=== PATIENT | male | born 1990 | race Hispanic/Latino ===

== ENCOUNTER 2021-01-26 04:10 | Emergency (ER) | payer SELFPAY ==
[2021-01-26 04:55] LABS: Absolute Lymphocytes (CBC) 3.7 K/uL (0.7-4.9); Basophils % 0.7 % (0-1.3); Hematocrit 44.5 % (39.6-49.0); Lymphocytes % 33.7 % (15.3-44.8); MPV 7.8 fL (7.6-11.3)
[2021-01-26 04:56] LABS: Protime INR 1.07
[2021-01-26] MEDS ORDERED: LORazepam 2 MG/ML VIAL ONE (04:59)
[2021-01-26] MEDS ORDERED: NA CHLORIDE 0.9% 1,000 ML ONE (04:59)
[2021-01-26 05:04] LABS: ALT/SGPT 122 U/L (12-78); AST/SGOT 32 U/L (15-37); Alkaline Phosphatase 124 U/L (45-117); BUN Blood Urea Nitrogen 12 mg/dL (7-18); Bicarbonate 24 mmol/L (21-32); Bilirubin Direct 0.1 mg/dL (0-0.2); Bilirubin Total 0.5 mg/dL (0.2-1.0); Glucose Level 143 mg/dL (74-106); Magnesium 1.9 mg/dL (1.8-2.4); NT PRO-BNP 8 pg/mL (<125); Potassium 3.3 mmol/L (3.5-5.1); Protein, Total 7.8 g/dL (6.4-8.2); Sodium Level 139 mmol/L (136-145); Troponin (Emerg Dept Use Only) < 0.02 ng/mL (0.0-0.045)
[2021-01-26 07:04] LABS: SARS-COV-2 RT PCR NEGATIVE (NEGATIVE)
--- NOTE | 2021-01-26 07:15 | EDPHYS ---
Physician Documentation [facility] Name: Jay Castellano Age: 30 yrs Sex: Male : 1990 Arrival Date: 01/26/2021 Time: 04:11 Bed Treatment Private MD: ED Physician Marciano Mendez HPI: 01/26 04:20 This 30 yrs old Male presents to ER via Wheelchair with complaints of Chest Pain, Left mh7 Arm Tingling. 04:20 The patient or guardian reports chest pain that is located primarily in the anterior mh7 chest wall, left. The pain radiates to the left arm. Associated signs and symptoms: Pertinent positives: dizziness, Pertinent negatives: abdominal pain, cough, diaphoresis, headache, lower extremity pain, lower extremity swelling, lightheadedness, nausea, near syncope, palpitations, recent travel, shortness of breath, syncope, vomiting. The chest pain is described as sharp. Duration: The patient or guardian reports multiple episodes, that are intermittent, that wax and wane, with no pattern. Modifying factors: The symptoms are alleviated by nothing. the symptoms are aggravated by nothing. Severity of pain: At its worst the pain was moderate today, in the emergency department the pain has improved mildly. He admits to drinking alcohol tonight and denies any drug use.. Historical: - Allergies: 04:30 No Known Allergies; em - PMHx: 04:30 None; em - PSHx: 04:30 None; em - Immunization history:: Adult Immunizations unknown. - Social history:: Smoking status: Patient reports the use of cigarette tobacco products, denies chronic smoking, but will smoke occasionally. ROS: 04:20 Constitutional: Negative for fever, chills, and weight loss, Eyes: Negative for injury, mh7 pain, redness, and discharge, ENT: Negative for injury, pain, and discharge, Neck: Negative for injury, pain, and swelling, Respiratory: Negative for shortness of breath, cough, wheezing, and pleuritic chest pain, Abdomen/GI: Negative for abdominal pain, nausea, vomiting, diarrhea, and constipation, Back: Negative for injury and pain, : Negative for injury, bleeding, discharge, and swelling, MS/Extremity: Negative for injury and deformity, Skin: Negative for injury, rash, and discoloration, Neuro: Negative for headache, weakness, numbness, tingling, and seizure, Psych: Negative for depression, anxiety, suicide ideation, homicidal ideation, and hallucinations, Allergy/Immunology: Negative for hives, rash, and allergies, Endocrine: Negative for neck swelling, polydipsia, polyuria, polyphagia, and marked weight changes, Hematologic/Lymphatic: Negative for swollen nodes, abnormal bleeding, and unusual bruising. Exam: 04:20 Constitutional: This is a well developed, well nourished patient who is awake, alert, mh7 and in no acute distress. Head/Face: Normocephalic, atraumatic. Eyes: Pupils equal round and reactive to light, extra-ocular motions intact. Lids and lashes normal. Conjunctiva and sclera are non-icteric and not injected. Cornea within normal limits. Periorbital areas with no swelling, redness, or edema. Neck: Trachea midline, no thyromegaly or masses palpated, and no cervical lymphadenopathy. Supple, full range of motion without nuchal rigidity, or vertebral point tenderness. No Meningismus. Chest/axilla: Normal chest wall appearance and motion. Nontender with no deformity. No lesions are appreciated. 04:20 Respiratory: Lungs have equal breath sounds bilaterally, clear to auscultation and percussion. No rales, rhonchi or wheezes noted. No increased work of breathing, no retractions or nasal flaring. Abdomen/GI: Soft, non-tender, with normal bowel sounds. No distension or tympany. No guarding or rebound. No evidence of tenderness throughout. Back: No spinal tenderness. No costovertebral tenderness. Full range of motion. Skin: Warm, dry with normal turgor. Normal color with no rashes, no lesions, and no evidence of cellulitis. MS/ Extremity: Pulses equal, no cyanosis. Neurovascular intact. Full, normal range of motion. Neuro: Awake and alert, GCS 15, oriented to person, place, time, and situation. Cranial nerves II-XII grossly intact. Motor strength 5/5 in all extremities. Sensory grossly intact. Cerebellar exam normal. Normal gait. Psych: Awake, alert, with orientation to person, place and time. Behavior, mood, and affect are within normal limits. 04:20 Cardiovascular: Rate: tachycardic, Rhythm: regular, Pulses: no pulse deficits are appreciated, Heart sounds: normal, normal S1and S2, Edema: is not appreciated, JVD: is not appreciated. Vital Signs: 04:41 BP 124 / 68; Pulse 97; Resp 20; Temp 97.8; Pulse Ox 98% ; Weight 145.15 kg; Height 5 ea ft. 8 in. (172.72 cm); 04:41 Body Mass Index 48.66 (145.15 kg, 172.72 cm) ea MDM: 07:13 Data reviewed: vital signs, nurses notes, lab test result(s), EKG, radiologic studies, cp CT scan, plain films, and as a result, I will discharge patient. 07:15 Patient medically screened. cp 01/26 04:30 Order name: Basic Metabolic Panel [facility] 01/26 04:30 Order name: CBC with Diff [facility] 01/26 04:30 Order name: LFT's [facility] 01/26 04:30 Order name: Magnesium [facility] 01/26 04:30 Order name: NT PRO-BNP [facility] 01/26 04:30 Order name: PT-INR; Complete Time: 05:12 [facility] 01/26 04:30 Order name: Troponin (emerg Dept Use Only) [facility] 01/26 04:30 Order name: ETOH Level; Complete Time: 05:12 [facility] 01/26 04:31 Order name: Basic Metabolic Panel; Complete Time: 05:12 [facility] 01/26 04:31 Order name: Liver (Hepatic) Function; Complete Time: 05:12 [facility] 01/26 04:31 Order name: CBC with Automated Diff; Complete Time: 05:12 [facility] 01/26 04:31 Order name: Magnesium; Complete Time: 05:12 [facility] 01/26 04:31 Order name: NT PRO-BNP; Complete Time: 05:12 [facility] 01/26 04:30 Order name: XRAY Chest (1 view) [facility] 01/26 04:30 Order name: EKG; Complete Time: 04:31 [facility] 01/26 04:30 Order name: Cardiac monitoring; Complete Time: 04:41 [facility] 01/26 04:30 Order name: EKG - Nurse/Tech; Complete Time: 04:41 [facility] 01/26 04:30 Order name: IV Saline Lock; Complete Time: 04:41 [facility] 01/26 04:30 Order name: Labs collected and sent; Complete Time: 04:41 [facility] 01/26 04:30 Order name: O2 Per Protocol; Complete Time: 04:41 [facility] 01/26 04:30 Order name: O2 Sat Monitoring; Complete Time: 04:41 [facility] 01/26 04:31 Order name: Troponin (Emerg Dept Use Only); Complete Time: 05:12 [facility] 01/26 05:15 Order name: CT Chest For PE Angio [facility] 01/26 05:20 Order name: Influenza Screen (a \T\ B) [facility] 01/26 07:04 Order name: COVID-19/FLU A+B EDMS Administered Medications: 04:41 Drug: NS 0.9% 1000 ml Route: IV; Rate: 1 bolus; Site: left wrist; ea 04:41 Drug: Ativan (LORazepam) 1 mg Route: IVP; Site: left wrist; ea Disposition: 19:09 Co-signature as Attending Physician, Marciano Mendez MD I agree with the assessment and [facility] plan of care. Attestation: The patient's history, exam findings, diagnostics, and a summary of any interventions or procedures was reviewed in detail with Marciano Mendez MD. Disposition Summary: 01/26/21 07:15 Discharge Ordered Location: Home cp Problem: new cp Symptoms: have improved cp Condition: Stable cp Diagnosis - Chest pain, unspecified cp Followup: cp - With: Private Physician - When: 1 - 2 days - Reason: Recheck today's complaints Discharge Instructions: - Discharge Summary Sheet cp - Nonspecific Chest Pain, Adult cp - Aspirin and Your Heart cp Forms: - Medication Reconciliation Form cp - Thank You Letter cp - Antibiotic Education cp - Prescription Opioid Use cp - Work release form eb Prescriptions: - Ibuprofen 800 mg Oral Tablet - take 1 tablet by ORAL route every 8 hours As needed take with food; 30 tablet; cp Refills: 0, Product Selection Permitted Signatures: Dispatcher [employer] Triston Canada RN RN em Page, Corey, PA PA cp Yisel Moon RN RN ea Holmes, Maurice, MD MD [facility] Corrections: (The following items were deleted from the chart) 05:45 05:22 Influenza Screen (A ordered. EDMS EDMS 05:47 05:21 CORONAVIRUS+MR.LAB.BRZ ordered. EDMS EDMS
--- NOTE | 2021-01-26 07:15 | ER ---
Nurse's Notes [facility] Name: Jay Castellano Age: 30 yrs Sex: Male : 1990 Arrival Date: 01/26/2021 Time: 04:11 Bed Treatment Private MD: Diagnosis: Chest pain, unspecified Presentation: 01/26 04:28 Chief complaint: Patient states: reports chest pain and left arm numbness that started em while drinking a few beers and tequila shots, denies nausea and vomiting, also reports dizziness. Coronavirus screen: Client denies travel out of the [place] in the last 14 days. Ebola Screen: Patient negative for fever greater than or equal to 101.5 degrees Fahrenheit, and additional compatible Ebola Virus Disease symptoms Patient denies exposure to infectious person. Patient denies travel to an Ebola-affected area in the 21 days before illness onset. No symptoms or risks identified at this time. Initial Sepsis Screen: Does the patient have a suspected source of infection? No. Patient's initial sepsis screen is negative. Risk Assessment: Do you want to hurt yourself or someone else? Patient reports no desire to harm self or others. Onset of symptoms was January 26, 2021. 04:28 Method Of Arrival: Wheelchair em 04:28 Acuity: SIMONE 3 em 07:00 Initial Sepsis Screen: Does the patient meet any 2 criteria? No. Patient's initial iw sepsis screen is negative. Triage Assessment: 07:54 General: Appears in no apparent distress. Behavior is calm, cooperative. Pain: Denies iw pain. Cardiovascular: Reports. Historical: - Allergies: 04:30 No Known Allergies; em - PMHx: 04:30 None; em - PSHx: 04:30 None; em - Immunization history:: Adult Immunizations unknown. - Social history:: Smoking status: Patient reports the use of cigarette tobacco products, denies chronic smoking, but will smoke occasionally. Screenin:42 Abuse screen: Denies threats or abuse. Nutritional screening: No deficits noted. ea Tuberculosis screening: No symptoms or risk factors identified. Fall Risk IV access (20 points). Vital Signs: 04:41 BP 124 / 68; Pulse 97; Resp 20; Temp 97.8; Pulse Ox 98% ; Weight 145.15 kg; Height 5 ea ft. 8 in. (172.72 cm); 04:41 Body Mass Index 48.66 (145.15 kg, 172.72 cm) ea ED Course: 04:11 Patient arrived in ED. bp1 04:14 Yanique Espinoza, RN is Primary Nurse. bs2 04:21 Marciano Mendez MD is Attending Physician. mh7 04:30 Triage completed. em 04:30 Arm band placed on. em 04:39 Inserted saline lock: 20 gauge in left forearm, using aseptic technique. Blood oe collected. 04:43 Patient has correct armband on for positive identification. Call light in reach. ea threat monitoring analyst on. Pulse ox on. NIBP on. 04:43 Patient maintains SpO2 saturation greater than 95% on room air. ea 05:10 XRAY Chest (1 view) In Process Unspecified. EDMS 05:58 CT Chest For PE Angio In Process Unspecified. EDMS 07:54 No provider procedures requiring assistance completed. IV discontinued, intact, iw bleeding controlled, No redness/swelling at site. Pressure dressing applied. Administered Medications: 04:41 Drug: NS 0.9% 1000 ml Route: IV; Rate: 1 bolus; Site: left wrist; ea 04:41 Drug: Ativan (LORazepam) 1 mg Route: IVP; Site: left wrist; ea Outcome: 07:15 Discharge ordered by MD. cp 07:54 Discharged to home ambulatory. iw 07:54 Condition: good 07:54 Discharge instructions given to patient, Instructed on discharge instructions, follow up and referral plans. medication usage, Demonstrated understanding of instructions, follow-up care, medications, Prescriptions given X 1. 07:54 Patient left the ED. iw Signatures: Dispatcher [employer] EDKS Triston Serrano, RN VINCENZO Sameera Delgado RN RN Steven Guzman PA PA cp Gumaro Bunch Elena, RN RN ea Maria L Bender bp1 Marciano Mendez MD MD 7 Yanique Espinoza, RN RN bs2
--- NOTE | 2021-01-26 07:46 | RAD REPORT ---
EXAM DESCRIPTION: RAD - Chest Single View - 01/26/2021 5:10 am CLINICAL HISTORY: CHEST PAIN COMPARISON: None TECHNIQUE: AP portable chest image was obtained 01/26/2021 5:10 am . FINDINGS: Lung volumes are low accentuating the lung parenchymal pattern. No focal mass or consolida tions seen. A mild interstitial edema or mild interstitial infiltrate could be masked in this setting . Trachea is midline. Heart and vasculature are normal. No measurable pleural effusion and no pneumotho rax. No acute bony abnormality seen. No acute aortic findings suspected. IMPRESSION: Limited shallow inspiration film with no acute cardiopulmonary finding. Mild interstitial edema or infiltrate could be masked in this setting.
[2021-01-26 08:02] VITALS: BP 124/68; TEMP 97.8; O2SAT 98
--- NOTE | 2021-01-27 11:48 | RAD REPORT ---
EXAM DESCRIPTION: CT - Chest For Pe Angio - 01/26/2021 7:00 am COMPARISON: None. CLINICAL HISTORY: [facility] MAIN CHEST PAIN TECHNIQUE: CT images through the chest with IV contrast using the pulmonary embolus protocol. Multip lanar reformats. Automated exposure control was utilized on this examination as a dose lowering techn ique. FINDINGS: Pulmonary arteries and vascular: Suboptimal bolus. No filling defects. Heart and mediastinum: Heart size is normal. No lymphadenopathy. Thyroid gland: Subcentimeter thyroid nodules are noted. Lungs: Mild dependent opacities. Airways: No filling defects. No bronchiectasis. Pleura: No pneumothorax. No significant pleural effusion. Subphrenic structures: Mild hepatic steatosis. Musculoskeletal and soft tissues: Within normal limits for age. IMPRESSION: 1. No evidence of large proximal pulmonary embolus. Limited evaluation for branch emboli due to bolus timing. 2. Mild dependent atelectasis or pulmonary edema. Electronically signed by: Kanu Agarwal MD 01/26/2021 6:19 AM CDT Due to temporary technical issues with the PACS/Fluency reporting system, reports are being signed by the in house radiologist without review as a courtesy to ensure prompt reporting. The interpreting r adiologist is fully responsible for the content of the report.
== END 2021-01-26 07:54 | disposition home or self-care (01) ==
LOC: ER 04:10
DX: R07.9 Chest pain, unspecified (principal); F17.210 Nicotine dependence, cigarettes, uncomplicated; Z20.822 Contact with and (suspected) exposure to COVID-19
CPT/HCPCS: 0240U; 36415; 71045; 71275; 80048; 80076; 80320; 83735; 83880; 84484; 85025; 85610; 93005; 96374; 99285; J7030; Q9967